=== PATIENT | female | born 1975 | race African-American/Black ===

== ENCOUNTER 2021-03-28 16:39 | Emergency (ER) | payer OTHER ==
--- NOTE | 2021-03-28 17:57 | ED ---
General Adult HPI - General Stated complaint: COVID Test Time Seen by Provider: 03/28/21 16:43 - History of Present Illness Initial comments: 45-year-old female presenting to the emergency department with a chief complaint of Covid testing. Patient needs this for international travel. No other complaints. Review of Systems ROS Statement: Those systems with pertinent positive or pertinent negative responses have been documented in the HPI. ROS Other: All systems not noted in ROS Statement are negative. General Exam Limitations: no limitations General appearance: alert, in no apparent distress Head exam: Present: normal inspection Eye exam: Present: normal appearance ENT exam: Present: normal exam Neck exam: Present: normal inspection Extremities exam: Present: normal inspection Back exam: Present: normal inspection Neurological exam: Present: alert, oriented X3 Psychiatric exam: Present: normal affect, normal mood Skin exam: Present: intact, normal color Medical Decision Making - Medical Decision Making Negative Covid - Lab Data Lab Results 03/28/21 Range/Units 17:12 Coronavirus (PCR) Not Detected (Not Detectd) Disposition Clinical Impression: Lab test negative for COVID-19 virus Disposition: HOME SELF-CARE Condition: Stable Additional Instructions: Please return to the Emergency Department if symptoms worsen or any other concerns. Is patient prescribed a controlled substance at d/c from ED?: No Referrals: None,Stated [Primary Care Provider] - 1-2 days Time of Disposition: 17:57
[2021-03-28 18:21] VITALS: BP 154/93; PULSE 85; RESP 20; TEMP 98.5
== END 2021-03-28 18:44 | disposition home or self-care (01) ==
LOC: EC 16:39
DX: Z20.822 Contact with and (suspected) exposure to COVID-19 (principal)
CPT/HCPCS: 87635; 99282